=== PATIENT | male | born 1985 | race African-American/Black ===

== ENCOUNTER 2019-01-30 17:18 | Inpatient (IN) | payer MEDICAID ==
[~2019-01-30] VITALS: Ht 170.2 cm; Wt 81.3 kg
[2019-01-30] MEDS ORDERED: ONDANSETRON HCL 4 MG/2 ML VIAL IV ONE ×3 (18:00→21:15)
[2019-01-30] MEDS ORDERED: LORazepam 2MG/ML-1ML VIAL IV ONE (18:00)
[2019-01-30] MEDS ORDERED: LEVETIRACETAM INJ 1,000 MG in D5W 5% 100 ML IV ONE (18:00)
[2019-01-30] MEDS ORDERED: SODIUM CHLORIDE 0.9% 1,000 ML IV ONE ×2 (18:00→21:00)
[2019-01-30] MEDS ORDERED: LORazepam 2MG/ML-1ML VIAL ONE (18:01)
[2019-01-30 18:10] LABS: Basophils # (auto) 0.1 uL; Basophils % (auto) 0.5 % (0.0-2.0); Eosinophils # (auto) 0 uL; Hematocrit 46.9 % (41.0-53.0); Lymphocytes # (auto) 0.6 uL; Mean Corpuscular Hemoglobin 27.6 pg (28.0-32.0); Mean Corpuscular Hgb Conc. 31.9 g/dL (32.0-36.0); Mean Corpuscular Volume 86.4 fL (80.0-100.0); Monocytes # (auto) 0.6 uL; Monocytes % (auto) 3.8 % (0.0-12.0); Neutrophils # (auto) 13.5 uL; Neutrophils % (auto) 91.7 % (37.0-80.0); Platelet Count (auto) 278 10^3/uL (140-450); Red Blood Cells 5.42 10^6/uL (4.5-5.90); Red Cell Distribution Width 15.9 % (11.8-14.3); White Blood Cell 14.7 10^3/uL (4.4-10.8)
[2019-01-30 18:26] LABS: Anion Gap 9 (5-15); Blood Urea Nitrogen 6 mg/dL (7-18); Calcium 8.5 mg/dL (8.5-10.1); Carbon Dioxide 20 mmol/L (21-32); Chloride 109 mmol/L (98-107); Glucose 190 mg/dL (74-106); Potassium 4.5 mmol/L (3.5-5.1); Sodium 138 mmol/L (136-145)
[2019-01-30 18:29] LABS: Albumin 4.2 g/dL (3.4-5.0); BUN/Creatinine Ratio 5.1; GFR African American 93 mL/min; GFR Non-African American 77 mL/min
[2019-01-30 18:32] LABS: Alanine Aminotransferase 31 U/L (16-61); Alkaline Phosphatase 83 U/L (45-117); Aspartate Aminotransferase 31 U/L (15-37); Bilirubin, Total 0.3 mg/dL (0.2-1.0); Total Protein 8.3 g/dL (6.4-8.2)
[2019-01-30 20:09] LABS: Urine WBC None Seen /hpf (0 - 3)
[2019-01-30] MEDS ORDERED: VANCOMYCIN 1GM/250ML 250 ML IV ONE (20:15)
[2019-01-30] MEDS ORDERED: cefTRIAXone 1GM/50ML D5W 50 ML IV ONE (20:15)
[2019-01-30] MEDS ORDERED: ACETAMINOPHEN 325 MG TAB PO ONE (20:15)
[2019-01-30 20:17] LABS: Urine Bacteria NONE SEEN /hpf (None Seen); Urine Blood TRACE /uL (Negative); Urine Specific Gravity 1.014 (1.001-1.035)
[2019-01-30 20:31] LABS: Alcohol, Urine < 3.0 mg/dL (0-5); Amphetamine Screen, Urine NEGATIVE (NEGATIVE); Barbiturate Scree,Urine NEGATIVE (NEGATIVE); Benzodiazephine Screen, Urine NEGATIVE (NEGATIVE); Cannabinoid Screen, Urine POSITIVE (NEGATIVE); Cocaine Screen, Urine NEGATIVE (NEGATIVE); Opiate Scree,Urine NEGATIVE (NEGATIVE); Phencyclidine Screen, Urine NEGATIVE (NEGATIVE)
[2019-01-30] MEDS ORDERED: MORPHINE SULF INJ 2 MG/ML SYRINGE 1ML IV ONE (21:15)
[2019-01-30] MEDS ORDERED: ACETAMINOPHEN 325 MG TAB PO PRN (23:15)
[2019-01-30] MEDS ORDERED: LORazepam 2MG/ML-1ML VIAL IV PRN (23:15)
[2019-01-30] MEDS ORDERED: TEMAZEPAM 15 MG CAP PO PRN (23:15)
[2019-01-30] MEDS ORDERED: IBUPROFEN 600 MG TAB PO ONE (23:30)
--- NOTE | 2019-01-31 00:05 | NUR ---
[facility] admit from ER YELENA APPLE admitted to [facility]. Patient oriented to Lakesha Polk, primary RN, unit, room, bed, and unit policies regarding patient care and visiting hours. Patient weighed by beds xander and encouraged to call if they need something. All questions and concerns addressed, patient verbalized understanding.
--- NOTE | 2019-01-31 00:05 | NUR ---
Seizure Precautions Patient assessed and determined to be at risk or positive for seizure activity. Bed rails padded.
[2019-01-31 00:10] VITALS: BP 142/76
[2019-01-31] MEDS ORDERED: DICL50TA4 PO (00:43)
[2019-01-31] MEDS ORDERED: LEVE750T3 PO (00:43)
[2019-01-31 04:32] VITALS: BP 144/73
[2019-01-31] MEDS: HYDROcodone-ACET 5/325MG TAB PO PRN ×2 (05:27→11:31)
[2019-01-31 05:35] LABS: Basophils # (auto) 0 uL; Basophils % (auto) 0.3 % (0.0-2.0); Eosinophils # (auto) 0 uL; Hematocrit 39.2 % (41.0-53.0); Hemoglobin 13.1 g/dL (13.5-17.5); Lymphocytes # (auto) 1.2 uL; Lymphocytes % (auto) 12.8 % (10.0-50.0); Mean Corpuscular Hemoglobin 28.3 pg (28.0-32.0); Mean Corpuscular Hgb Conc. 33.5 g/dL (32.0-36.0); Mean Corpuscular Volume 84.6 fL (80.0-100.0); Monocytes # (auto) 0.7 uL; Monocytes % (auto) 7.9 % (0.0-12.0); Neutrophils # (auto) 7.2 uL; Platelet Count (auto) 237 10^3/uL (140-450); Red Blood Cells 4.64 10^6/uL (4.5-5.90); Red Cell Distribution Width 16.3 % (11.8-14.3); White Blood Cell 9.1 10^3/uL (4.4-10.8)
[2019-01-31 05:51] LABS: BUN/Creatinine Ratio 5.9; Calcium 8.1 mg/dL (8.5-10.1); Potassium 3.4 mmol/L (3.5-5.1)
--- NOTE | 2019-01-31 07:30 | NUR ---
Morning note patient resting in bed with even and unlabored respirations, no distress noted. Instructed patient on POC, fall & seizure precautions and to call for assistance when needed. Patient verbalized understanding. Fall precautions in place with bed in lowest locked position with x2 side rails up. Seizure precautions in place. Call light within reach. Will continue to monitor q1hr & PRN.
[2019-01-31 08:00] VITALS: BP 151/77
--- NOTE | 2019-01-31 09:45 | NUR ---
Seizure-like activity This RN was alerted by staff members that patient was having seizure-like activity. Patient's stated "he was sitting there talking and then he started moving his arm in and out. He was zoned out and then started to lay back in bed and was confused on where he was. He started pulling at the wrap thing on his arm because he didn't know what was going on." Patient is A&Ox4 at this time. Respirations even and unlabored, no distress noted. No trauma noted. Shravan, kiln charger, was at bedside. Patient's reports patient's home dose of Keppra is 750mg PO - two tablets BID. Seizure and fall precautions in place at this time.
[2019-01-31] MEDS ORDERED: LEVOFLOXACIN 500MG 100 ML IV SCH (10:00)
[2019-01-31] MEDS ORDERED: LEVETIRACETAM 500 MG TAB PO SCH ×2 (10:00→22:00)
[2019-01-31] MEDS ORDERED: FAMOTIDINE 20 MG TAB PO SCH (10:00)
--- NOTE | 2019-01-31 11:25 | NUR ---
Called RE: Keppra dose Called Dr. Marla Carlson to notify of patient's reported home dose of Keppra. No answer. Voicemail left.
--- NOTE | 2019-01-31 11:39 | NUR ---
RE: Keppra self-administered by patient's spouse Patient's spouse at bedside had patient's home dose of Keppra and administered one 750mg tablet to the patient. Patient's spouse stated "I've been telling people and nobody has adjusted it. He should of taken this dose back at 5 or 6 this morning and then take the next dose at 5. You all are playing with my husbands life." This RN informed the patient and the patient's spouse that the MD has been contacted and is awaiting MD orders. Patient's spouse stated "it don't matter. He needs it now." Informed and educated the patient. Patient verbalized understanding. Addendum: 01/31/19 at 1151 by Ethel Wilhelm RN Notified Dr. Vora. verbalized understanding. Orders received and read to back to verify.
--- NOTE | 2019-01-31 11:43 | NUR ---
Patient's spouse requesting STD & AIDs test Patient's spouse stated "Can you all test him for STDs and AIDs?" Patient looked at this RN and stated "that's fine. Whatever." Will notify MD. Addendum: 01/31/19 at 1151 by Ethel Wilhelm RN Notified Dr. Vora of patient's spouse's request. verbalized understanding. Patient to obtain test from PCP.
--- NOTE | 2019-01-31 11:58 | NUR ---
Report of seizure-like activity This RN was updating the patient on POC. Patient's mother at bedside stated "he just had another little one. He had a little twitching like he was going to have a seizure but then it stopped." Patient seen resting in bed with even and unlabored respirations, no distress noted. Patient verbalized understanding to POC. Will continue to monitor q1hr & PRN.
[2019-01-31 12:00] VITALS: BP 155/97
--- NOTE | 2019-01-31 15:20 | NUR ---
was at bedside - Dr. Vora this RN was at bedside. POC discussed with this RN. MD updated on patient's status. MD verbalized understanding. MD to place orders.
--- NOTE | 2019-01-31 15:48 | NUR ---
Discharge Discharge education and paperwork given to patient per MD's order. Patient verbalized understanding. IV removed with clean technique, catheter intact. Dressing applied. Patient tolerated well. Patient instructed to call PCP to schedule a follow up appointment and that he is not to drive a motorized vehicle per MD's order. Patient verbalized understanding to all. Instructed patient to gather all personal belongings. Patient verbalized understanding. Patient stated "My mom took our car to go run an errand down the hill and won't be back for about an hour." Instructed patient to notify staff once transportation arrives. Patient verbalized understanding. Respirations are even and unlabored, no distress noted.
[2019-01-31 16:00] VITALS: BP 145/76
--- NOTE | 2019-01-31 17:57 | NUR ---
Patient departed unit Patient refused wheelchair. Patient ambulated with a steady gait to a private vehicle with all personal belongings. No distress noted at time of departure.
== END 2019-01-31 17:54 | disposition home or self-care (01) | DRG 53 ==
LOC: ER 17:23 → OVERFLOW 23:17 → WEST WING 23:41
PROVIDERS: ADMIT Nurse Practitioner; ATTEND Internal Medicine
DX: G40.909 Epilepsy, unspecified, not intractable, without status epilepticus (principal); F12.90 Cannabis use, unspecified, uncomplicated; J20.9 Acute bronchitis, unspecified
CPT/HCPCS: 36415; 70450; 71045; 72125; 80048; 80053; 80307; 80320; 81001; 82542; 83605; 85025; 87040; 87086; 96365; 96375; G0378; J0696; J1956; J2405